=== PATIENT | male | born 1985 | race Two or more races ===

== ENCOUNTER 2023-07-03 10:07 | Emergency (ER) | payer OTHER ==
[2023-07-03] MEDS ORDERED: SODIUM CHLORIDE 0.9% 1,000 ML IV STA (10:34)
--- NOTE | 2023-07-03 10:36 | ED Physician Documentation ---
PD HPI HEADACHE - Stated complaint Stated Complaint: BP HIGH, GRAHAM - Chief complaint Chief Complaint: Neuro - History obtained from History obtained from: Patient - Additional information Additional information: Patient is a 38-year-old male with a history of hypertension presenting from the walk-in clinic for evaluation of elevated blood pressure and headache. Patient reports having a headache starting yesterday afternoon while at rest. He feels it in the back of his head and it radiates forward. Nothing makes it better or worse. No associated nausea or vomiting. Denies exertion at onset or t hunderclap in intensity. Has been using acetaminophen with some improvement. He went to the walk-in clinic today and they noted his blood pressure was elevated. He reports being compliant with his propanolol 60 mg daily. He states he has been on this medication for 6 months. He has not had any recent dose adjustments. He does report feeling very stressed and having poor sleep. Denies fever, chest pain, shortness of air, abdominal symptoms. Does not take a blood thinner. Review of Systems Constitutional: denies: Fever Cardiac: denies: Chest pain / pressure Respiratory: denies: Dyspnea GI: denies: Abdominal Pain Musculoskeletal: denies: Neck pain Neurologic: reports: Headache PD PAST MEDICAL HISTORY - Present Medications Home Medications: Ambulatory Orders Medication Instructions Recorded Confirmed amLODIPine [Norvasc] 5 mg PO DAILY #30 tablet 07/03/23 - Allergies Allergies/Adverse Reactions: Allergies Allergy/AdvReac Type Severity Reaction Status Date / Time No Known Drug Allergies Allergy Verified 07/03/23 10:25 PD ED PE NORMAL - General General: Alert and oriented X 3, No acute distress, Well developed/nourished - HEENT HEENT: Atraumatic, PERRL, EOMI, Moist mucous membranes, Pharynx benign - Neck Neck: Supple, no meningeal sign, No bony TTP - Cardiac Cardiac: RRR, No murmur - Respiratory Respiratory: No respiratory distress, Clear bilaterally - Abdomen Abdomen: Soft, Non tender - Derm Derm: Warm and dry - Extremities Extremities: No edema, No calf tenderness / cord - Neuro Neuro: Alert and oriented X 3, pharmacy cashier 2-12 intact, No motor deficit, No sensory deficit, Normal speech, Other (Normal unassisted gait) Results - Vitals Vitals: Vital Signs - 24 hr 08/29/23 08/29/23 08/29/23 10:19 10:32 11:58 Temperature 36.2 C L Heart Rate 74 73 75 Respiratory 18 15 15 Rate Blood Pressure 170/113 H 165/104 H 156/109 H O2 Saturation 98 100 100 07/03/23 07/03/23 07/03/23 13:12 13:45 14:01 Temperature Heart Rate 74 67 87 Respiratory 10 L 13 15 Rate Blood Pressure 163/104 H 159/105 H 164/97 H O2 Saturation 98 100 99 Oxygen O2 Source Room air - EKG (time done) 1018 EKG releavant findings:: EKG personally interpreted by author of this note. Relevant findings are: Rate 68, normal sinus rhythm, no STEMI, no prior for comparison Rate: Rate (enter#) (68) Rhythm: NSR Intervals: No: Prolonged QT Ischemia: No: ST elevation c/w ischemia Other comments: Other comments Compare to prior EKG: Old EKG unavailable (Motion artifact) - Labs Labs: Laboratory Tests 07/03/23 07/03/23 10:48 11:09 WBC 5.2 RBC 4.72 Hgb 14.1 Hct 43.2 MCV 91.5 MCH 29.9 MCHC 32.6 RDW 12.6 Plt Count 223 MPV 10.3 Neut # (Auto) 2.7 Lymph # (Auto) 1.9 Cedar # (Auto) 0.4 Eos # (Auto) 0.1 Baso # (Auto) 0.0 Absolute Nucleated RBC 0.00 Nucleated RBC % 0.0 Sodium 139 Potassium 4.1 Chloride 103 Carbon Dioxide 32 Anion Gap 4.0 L BUN 7 Creatinine 0.8 Estimated GFR (MDRD) 108 Glucose 97 Calcium 9.8 Total Bilirubin 1.3 H AST 21 ALT 17 Alkaline Phosphatase 61 Total Protein 7.5 Albumin 4.6 Globulin 2.9 Albumin/Globulin Ratio 1.6 PD Medical Decision Making - ED course Complexity details: reviewed results, re-evaluated patient, d/w patient ED course: Patient is a 38-year-old male with a history of hypertension presenting for eval uation of elevated blood pressure readings and headache since yesterday. Headache is not the worst headache of his life and does not have other features to suggest a subarachnoid hemorrhage. I did obtain a CT head to evaluate for intracranial hemorrhage given his hypertension and do not see evidence of this. CBC, chemistries were reviewed without significant findings. Patient reports improvement in his headache with migraine cocktail of IV Toradol, Reglan and Benadryl With IV fluids. Patient's blood pressure remained elevated including diastolic. Does not appear to have hypertensive emergency. We discussed options for treatment including close follow-up with the [facility] clinic versus adding an additional medication to his regiment. Patient states that he was last seen at their clinic in May and his blood pressure was also elevated there so I do feel that he has likely not been in his goal range recently on his propanolol. I am going to start him on a low-dose of amlodipine and have given him the first dose here today. I have instructed him to have close follow-up with the [facility]. 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 He is also advised on concerning symptoms to return for. No signs of meningitis. Normal neuro exam. Ambulatory without any difficulty. Departure - Departure Disposition: Home, Self Care Clinical Impression: Headache, Uncontrolled hypertension Condition: Stable Instructions: ED Cephalgia Unspecified, ED Hypertension Conf Out Of Control Follow-Up: ANDREY Hughes [Provider Group] Prescriptions: amLODIPine [Norvasc] 5 mg PO DAILY #30 tablet Comments: Your blood tests and work-up today do not show any damage from having too high of a blood pressure. You did receive medications to help with your headache. Because your blood pressure has remained elevated we have discussed options for treatment including adding another blood pressure medication to your regiment.I am sending a prescription for a new medication called amlodipine to the [facility] pharmacy in [place]. I would also recommend you call the [facility] clinic today to establish a follow-up visit for recheck of your blood pressure. Return to the emergency department if at anytime you feel dizzy, lightheaded, worsening headache or any new symptoms. Please also continue with your current blood pressure medication. Forms: PCP List, Activity restrictions Discharge Date/Time: 07/03/23 14:02
[2023-07-03 10:52] LABS: BASOPHILS % (AUTO) 0.8 %; EOSINOPHILS # (AUTO) 0.1 10^3/uL (0.0-0.7); EOSINOPHILS % (AUTO) 1.4 %; HCT - HEMATOCRIT 43.2 % (42.0-52.0); HGB - HEMOGLOBIN 14.1 g/dL (14.0-18.0); LYMPHOCYTES # (AUTO) 1.9 10^3/uL (1.5-3.5); LYMPHOCYTES % (AUTO) 37.5 %; MEAN CORPUSCULAR HEMOGLOBIN 29.9 pg (27.0-31.0); MEAN CORPUSCULAR HGB CONC 32.6 g/dL (32.0-36.0); MEAN CORPUSCULAR VOLUME 91.5 fL (80.0-94.0); MEAN PLATELET VOLUME 10.3 fL (7.4-11.4); MONOCYTES # (AUTO) 0.4 10^3/uL (0.0-1.0); MONOCYTES % (AUTO) 8.1 %; NEUTROPHILS # (AUTO) 2.7 10^3/uL (1.5-6.6); NEUTROPHILS % (AUTO) 51.8 %; PLT - PLATELET COUNT 223 10^3/uL (130-450); RED BLOOD COUNT 4.72 10^6/uL (4.70-6.10); RED CELL DISTRIBUTION WIDTH 12.6 % (12.0-15.0); WHITE BLOOD COUNT 5.2 x10^3/uL (4.8-10.8)
[2023-07-03 11:30] LABS: ALBUMIN 4.6 g/dL (3.2-5.5); ALBUMIN/GLOBULIN RATIO 1.6 (1.0-2.2); BILIRUBIN,TOTAL 1.3 mg/dL (0.2-1.0); CALCIUM 9.8 mg/dL (8.5-10.3); CREATININE 0.8 mg/dL (0.6-1.3); POTASSIUM 4.1 mmol/L (3.5-4.5); TOTAL PROTEIN 7.5 g/dL (6.4-8.9)
--- NOTE | 2023-07-03 11:36 | CT Report ---
PROCEDURE: HEAD WO INDICATIONS: headache/HTN TECHNIQUE: Noncontrast 4.5 mm thick angled axial sections acquired from the foramen magnum to the vertex. For r adiation dose reduction, the following was used: automated exposure control, adjustment of mA and/or kV according to patient size. COMPARISON: None. FINDINGS: Image quality: Excellent. CSF spaces: Basal cisterns are patent. No extra-axial fluid collections. Ventricles are normal in size and shape. Brain: No midline shift. No intracranial masses or hemorrhage. Dyer-white matter interface is norm al. Skull and face: Calvarium and visualized facial bones are intact, without suspicious lesions. Sinuses: Visualized sinuses and mastoids are clear. IMPRESSION: No acute intracranial pathology Reviewed by: Dudley Lemus MD on 07/03/2023 11:35 AM PDT Approved by: Dudley Lemus MD on 07/03/2023 11:35 AM PDT Station ID: [id number]
[2023-07-03] MEDS ORDERED: diphenhydrAMINE INJ 50 MG/ML VIAL IVP STA (11:47)
[2023-07-03] MEDS ORDERED: KETOROLAC 30 MG/ML VIAL IVP STA (11:47)
[2023-07-03] MEDS ORDERED: METOCLOPRAMIDE 10 MG/2 ML VIAL IVP STA (11:47)
[2023-07-03] MEDS ORDERED: amLODIPine 5 MG TABLET PO STA (13:18)
[2023-07-03 14:04] VITALS: BP 164/97; O2SAT 99
== END 2023-07-03 14:02 | disposition home or self-care (01) ==
LOC: ED 10:07
DX: R51.9 Headache, unspecified (principal); I10 Essential (primary) hypertension
CPT/HCPCS: 36415; 70450; 80053; 85025; 93005; 96374; 96375; 99284; A9270; J1200; J2765

== ENCOUNTER 2024-01-08 11:33 | Emergency (ER) | payer OTHER ==
--- NOTE | 2024-01-08 12:05 | ED Physician Documentation ---
PD HPI BACK PAIN - Stated complaint Stated Complaint: LOWER BACK PX,BILAT LEG NUMBNESS - History obtained from History obtained from: Patient - History of Present Illness Timing - onset: How many months ago (had a fall onto back a month ago with some pain to low back intermittently. Fell again yesteday backward, just tripped, and landed buttock/low back with worse pain, radiating down left leg, with some numbness to leg. No weakness.) Timing - details: Abrupt onset, Still present Location: Lower, Left Quality: Pain, Spasm. No: Aching Associated symptoms: Numbness. No: Fever, Weakness Contributing factors: Trauma (fall to buttock/low back) Review of Systems : denies: Incontinent Musculoskeletal: reports: Back pain. denies: Neck pain Neurologic: reports: Numbness (left leg). denies: Focal weakness PD PAST MEDICAL HISTORY - Past Medical History Past Medical History: Yes Cardiovascular: Hypertension - Present Medications Home Medications: Ambulatory Orders Medication Instructions Recorded Confirmed amLODIPine [Norvasc] 5 mg PO DAILY #30 tablet 07/03/23 01/08/24 HYDROcod/ACETAM 5/325 [Omega 5/325] 1 ea PO Q6H PRN #15 tablet 01/08/24 Meloxicam [Mobic] 7.5 mg PO BID 10 Days #20 tablet 01/08/24 methocarbamoL [Robaxin] 500 mg PO TID PRN #20 tablet 01/08/24 - Allergies Allergies/Adverse Reactions: Allergies Allergy/AdvReac Type Severity Reaction Status Date / Time No Known Drug Allergies Allergy Verified 01/08/24 12:00 - Social History Does the pt smoke?: No Smoking Status: Never smoker Does the pt drink ETOH?: No Does the pt have substance abuse?: No PD ED PE NORMAL - Vitals Vital signs reviewed: Yes - General General: Alert and oriented X 3, Well developed/nourished, Other - Back Back: Other (left lateral lumbar area with some soft tissue/muscle tenderness. Not tender in midline. ) - Derm Derm: Normal color, Warm and dry - Neuro Neuro: Alert and oriented X 3, No motor deficit, Normal speech, Other (decreased sensation left leg in general, nondermatomal. No weakness. ) Results - Vitals Vitals: Oxygen O2 Source Room air - Rads (name of study) lumbar CT Relevant Findings:: Prelim report reviewed (no fractures nor disc problems of note. Central canal without impingement. ), EMP independent interpretation of test PD Medical Decision Making - ED course Complexity details: reviewed results (CT lumbar without acute process. ), considered differential, d/w patient Reviewed Lab Results: CT done due to injury and then back pain with numbness to left leg. CT did not show structural injury. Presume muscular strain. Given dilaudid, toradol IM for pain. Departure - Departure Disposition: 01 Home, Self Care Clinical Impression: Fall, accidental, Low back pain, Acute myofascial strain of lumbar region Condition: Stable Record reviewed to determine appropriate education?: Yes Instructions: ED Low Back Pain Injury Follow-Up: WU BORJAS MD [Primary Care Provider] - Prescriptions: Meloxicam [Mobic] 7.5 mg PO BID 10 Days #20 tablet HYDROcod/ACETAM 5/325 [Omega 5/325] 1 ea PO Q6H PRN #15 tablet PRN Reason: Pain methocarbamoL [Robaxin] 500 mg PO TID PRN #20 tablet PRN Reason: Spasms Comments: Your CT scan appears normal without any signs of disc abnormalities, nerve impingement, fractures or misalignment. Incidentally noted was a small blood vessel clustering called a hemangioma which is a normal incidental finding. No follow-up is needed for that part. Follow-up with your primary care however for the back pain. Presume strain of the muscles and spasming within pressure on the nerves causing the numbness down the leg. We could go with a combination of anti-inflammatories and muscle relaxants, heat stretching and light activity. Add Tylenol every 4-6 hours if needed for pain or hydrocodone/acetaminophen if needed for worse pain. Off duty today in a couple more days. I sent your prescriptions to [facility] pharmacy. I am prescribing a short course of narcotic pain medication for you. These are potentially dangerous and addictive medications that should be used carefully. These medications may constipate you. Take an [id number] stool softener such as docusate twice daily with plenty of water while taking these medications. If you go 24 hours without a bowel movement, take [id number] MiraLAX, per package instructions. Do not drink or drive while taking these medications. If you received narcotic or sedating medications while in the emergency department do not drive for 24 hours. Store this medication in a safe, secure place and out of reach of children. It is a violation of federal law to give or sell this medication to another person or to use in a manner other than prescribed. The ED will not refill narcotic prescriptions, including prescriptions lost or stolen. You can dispose of unwanted medications at the [facility]'s office or at several pharmacies such as [facility]. Forms: Activity restrictions Discharge Date/Time: 01/08/24 14:44
[2024-01-08 12:06] VITALS: BP 149/100; O2SAT 100
[2024-01-08] MEDS: KETOROLAC 30 MG/ML VIAL IM STA (13:29)
[2024-01-08] MEDS: HYDROmorphone 1 MG/ML CARPUJECT IM STA (13:30)
[2024-01-08] MEDS: methocarbamoL 500 MG TABLET PO STA (13:31)
--- NOTE | 2024-01-08 13:37 | CT Report ---
PROCEDURE: Lumbar Spine WO INDICATIONS: fall, pain left lumbar, numbness left leg TECHNIQUE: Noncontrast 3 mm thick sections acquired from the T12 level to the sacrum. Sagittal and coronal refo rmats were constructed. For radiation dose reduction, the following was used: automated exposure co ntrol, adjustment of mA and/or kV according to patient size. COMPARISON: None. FINDINGS: Image quality: Excellent. Bones: There is normal bony alignment. L1 benign intraosseous hemangioma. No acute vertebral body c ompression fractures. No suspicious lytic or blastic bony lesions. No central canal stenosis or neur al foraminal narrowing. No No pars defects. Soft tissues: No retroperitoneal masses or hematomas. Visualized aorta is normal in caliber. IMPRESSION: No fracture. No acute osseous lesion. If there is continued clinical concern for pathology, then MRI should be considered for further evaluation. Reviewed by: Danielle Jose MD, PhD on 01/08/2024 1:35 PM PST Approved by: Danielle Jose MD, PhD on 01/08/2024 1:35 PM PST Station ID: [id number]
== END 2024-01-08 14:44 | disposition home or self-care (01) ==
LOC: ED 11:33
DX: S39.012A Strain of muscle, fascia and tendon of lower back, initial encounter (principal); W01.0XXA Fall on same level from slipping, tripping and stumbling without subsequent striking against object, initial encounter
CPT/HCPCS: 72131; 96372; 99284; A9270; J1170

== ENCOUNTER 2024-04-17 15:20 | Emergency (ER) | payer OTHER ==
[2024-04-17 15:33] VITALS: BP 137/79; O2SAT 100
--- NOTE | 2024-04-17 17:08 | XRAY Report ---
PROCEDURE: Hand 3+V LT INDICATIONS: crushed injury/laceration L 4-5TH DIGIT TECHNIQUE: 3 views of the hand(s) acquired. COMPARISON: None. FINDINGS: Bones: Comminuted distal tuft fracture, distal phalanx of fifth finger. No suspicious bony lesions. Soft tissues: No suspicious soft tissue calcifications or masses. Associated soft tissue laceration, distal aspect, fifth finger IMPRESSION: Comminuted distal tuft fracture of distal phalanx of fifth finger with associated soft tissue lacerat ion. Reviewed by: Dudley Lemus MD on 04/17/2024 5:07 PM PDT Approved by: Dudley Lemus MD on 04/17/2024 5:07 PM PDT Station ID: [id number]
[2024-04-17] MEDS: BUPIVACAINE 0.5% PF 10 ML VIAL IM ONE (18:21)
--- NOTE | 2024-04-17 18:27 | ED Physician Documentation ---
PD HPI SKIN - Stated complaint Stated Complaint: LT HAND LAC - Chief complaint Chief Complaint: Laceration - Additional information Additional information: Patient said that he had his arms outstretched over doorway and wind slammed the door shut onto his left hand crushing his fourth and fifth finger. Bleeding is well-controlled but there is an open laceration patient endorses and severe pain up-to-date with tetanus shot. Most the bleeding laceration is to the left fifth finger patient reports he is experiencing severe pain able to flex and extend without difficulty. PD PAST MEDICAL HISTORY - Past Medical History Past Medical History: No Cardiovascular: Hypertension Respiratory: None Neuro: None Endocrine/Autoimmune: None GI: None : None HEENT: None Psych: Depression Musculoskeletal: None Derm: None - Past Surgical History Past Surgical History: No - Present Medications Home Medications: Ambulatory Orders Medication Instructions Recorded Confirmed Citalopram [CeleXA] 10 mg PO DAILY 04/17/24 HYDROcod/ACETAM 5/325 [Samson 5/325] 1 tab PO Q6H PRN #5 tab 04/17/24 Lisinopril [Zestril] 10 mg PO DAILY 04/17/24 cephALEXin [Keflex] 500 mg PO Q6H 5 Days #20 cap 04/17/24 hydroCHLOROthiazide [Hydrodiuril] 12.5 mg PO DAILY 04/17/24 - Allergies Allergies/Adverse Reactions: Allergies Allergy/AdvReac Type Severity Reaction Status Date / Time No Known Drug Allergies Allergy Verified 04/17/24 15:31 - Social History Does the pt smoke?: No Smoking Status: Never smoker Does the pt drink ETOH?: No Does the pt have substance abuse?: No - Immunizations Immunizations are current?: Yes - POLST Patient has POLST: No PD ED PE NORMAL - Vitals Vital signs reviewed: Yes - General General: Alert and oriented X 3, No acute distress, Well developed/nourished - Free text exam Free text exam: Left hand: Laceration to left fifth finger at the DIP not involving the nail. Able to flex and extend against resistance. Superficial laceration to the volar aspect of the left fourth finger in between MIP and DIP bleeding controlled able to flex and extend without difficulty. Results - Vitals Vitals: Vital Signs - 24 hr 04/17/24 15:22 Temperature 36.4 C L Heart Rate 74 Respiratory 16 Rate Blood Pressure 137/79 H O2 Saturation 100 Oxygen O2 Source Room air Procedures - Laceration (location) fifth finger laceration Length in cm: 1.5 Wound type: Curved, Into subcut fat, Clean Neurovascular status: Sensory intact, Motor intact, Vascular intact Tendon involvement: Tendon intact Anesthesia: Marcaine 0.25% Wound preparation: Irrigated copiously NS, debridement of wound edges (traumatic laceration/avulsion) Skin layer closure: Nylon, Interrupted, Size #-0 - enter number (4-0), Sutures - enter # (4) Other: Patient tolerated well, No complications, Neurovascular intact, Dressing applied, Tetanus UTD PD Medical Decision Making - ED course ED course: Wound inspected under direct bright light with good visualization. X-rays complete of the left hand it does reveal that patient has a comminuted distal tuft fracture of distal phalanx of the left fifth finger. Area with linear laceration across soft tissue through adipose without exposure of muscle belly or tendon. No overt foreign body. Area hemostatic. Neurovascular exam congruent with above. Area extensively irrigated with sterile normal saline under pressure. Laceration repaired in simple fashion (please see procedure note for further details). He is also given intramuscular one-time dose of Rocephin Because there is bony involvement and prescription of Keflex sent to his preferred pharmacy.Patient tolerated procedure well and neurovascular exam intact and unchanged post repair with intact distal pulses and cap refill. Cautious return precautions discussed w/ full understanding. Wound care discussed. Prompt follow up with primary care physician discussed and return for suture removal in 8-10 days. Departure - Departure Disposition: 01 Home, Self Care Clinical Impression: Open fracture of tuft of distal phalanx of finger Instructions: ED Fx Finger Open Prescriptions: cephALEXin [Keflex] 500 mg PO Q6H 5 Days #20 cap HYDROcod/ACETAM 5/325 [Samson 5/325] 1 tab PO Q6H PRN #5 tab PRN Reason: Pain >8 Forms: PCP List Discharge Date/Time: 04/17/24 19:04
[2024-04-17] MEDS: LIDOCAINE 1% 2 ML VIAL MC ONE (18:36)
[2024-04-17] MEDS: cefTRIAXone 1 GM VIAL IM STA (18:37)
[2024-04-17] MEDS: BACITRACIN ZINC OINT 1 PACKET TOP STA (18:37)
== END 2024-04-17 19:04 | disposition home or self-care (01) ==
LOC: ED 15:20
DX: S62.637B Displaced fracture of distal phalanx of left little finger, initial encounter for open fracture (principal); W23.1XXA Caught, crushed, jammed, or pinched between stationary objects, initial encounter; Y93.89 Activity, other specified
CPT/HCPCS: 12001; 73130; 96374; 99283; 99284; A9270

== ENCOUNTER 2024-05-06 15:48 | Outpatient (CLI) | payer OTHER ==
--- NOTE | 2024-05-06 16:53 | Sleep Patient Instructions ---
Sleep Center Visit Summary - Patient Visit Information Reason for Visit: Initial consult for evaluation of sleep disordered breathing and other sleep issues. - Patient Instructions Instructions Attached: Sleep Study Additional Instructions: You will be completing a sleep study, either an in-lab polysomnography (PSG) or home sleep study (HST). You will follow-up in the sleep care office after the sleep study is completed to hear the results and talk about therapy, if needed. You will be called by our office staff to schedule this appointment, but you may contact us with any questions. - Clinic Information Contact: [facility] [address] [place] [address] [email or web address] T: [phone]
--- NOTE | 2024-05-06 16:56 | SLEEP CARE CONSULTATION ---
Information from patient questionnaire entered by Yelitza Arredondo. I have reviewed and concur with the information entered by Yelitza Arredondo. This document represents the service I personally performed and the decisions made by me, Elena Lechuga ARNP. History of Present Illness Service Date and Time: 05/06/2024 1548 Reason for Visit: New patient Chief Complaint: reports: Insomnia, Snoring, Fatigue, Frequent awakenings at night Date of Onset: Approximately 1 year 1/2 Usual bedtime: 9 PM - 10 PM Time it takes to fall asleep: 30 min approximately Snores at night: Yes Observed to quit breathing while asleep: Yes Sleeps alone due to snoring: No Number of times waking at night: 2 - 3 Reasons for waking at night: reports: Choking, Snoring, Gasping for air, Other (Cough a lot) Toss, Turn, or Twitch while sleeping: Yes Recalls having dreams: Yes Usually gets out of bed at: 6:30 - 7:00 AM Feels refreshed in the morning: No Morning headache: Yes (just about every day; last all day until - With Tylenol or Excedrin) Sleepy or fatigued during the day: Yes Ever fallen asleep while driving: No Takes day naps: Yes (on Sunday, 10 minute nap) Dreams during day naps: No Prior sleep studies: No Additional HPI information: I had the pleasure of seeing EARL ALBERTO today regarding the possibility of him having a sleep disorder. His current complaints are insomnia, snoring, fatigue and frequent night awakenings. He thinks his doctor sent him here because he is a little overweight, has high blood pressure and is not sleeping well. He lays down between 9-10 pm and it takes about a half hour to go to sleep. He will wake up 3-4 hours later and not be able to fall back to sleep. He is not sure what is waking him up, but sometimes he has nightmares that will cause him to wake up. He will lay in bed and get up about [id number] AM. He does not feel rested in the morning, "feels tired". - Parasomnia Symptoms Ever been unable to move upon waking from sleep: No Walks in sleep: No Talks in sleep: Yes Ever acted out dreams in sleep: Yes (once he woke up punching wall) Ever felt weak in the knees when startled or emotional: No Bothered by creepy, crawly, restless sensations in legs: Yes (sometimes, randomly ) Problems with memory or concentration: Yes (concentration all the time) Subjective Initial [place] Sleepiness Scale score: 12 (in 2023) Past Medical History Past Medical History: reports: Hypertension, Anxiety, Depression, Attention deficit, Other (Panic Attack) Social History 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 Patient is and lives in [place]. Have you smoked in the past 12 months: No Alcohol use: Yes Alcohol amount and frequency: 6 pack or cup, 1 monthly Caffeine use: Yes Caffeine amount and frequency: 1 cup coffee in morning Family History Family history of sleep disordered breathing: No Allergies and Home Medications Known drug allergies: No Drug allergies reviewed: Yes Home medication list reviewed: Yes (as listed) Allergy and home medication list: Allergies No Known Drug Allergies Allergy (Verified 05/05/24 10:33) Medications: Lisinopril 20 HCTZ 25 mg Escitalopram Hydroxizine Review of Systems Weight gain over past 5 years: 35 Cardiovascular: reports: high blood pressure, palpitations Gastrointestinal: denies: heartburn Urinary: reports: impotence Neurological: reports: headaches Psychiatric: reports: Attention Deficit Hyperactivity, anxiety, other (Panic attacks) Ear/Nose/Throat: denies: tonsillectomy Endocrine: reports: increased appetite Musculoskeletal: reports: back pain Physical Exam Vital signs obtained and entered by: Elena Vegas NP Blood Pressure: 131/85 Cuff size: long (right arm) Heart Rate: 72 O2 Saturation: 99 Height: 6 ft Weight: 243 lb 12.8 oz Body Mass Index: 33.0 BMI Classification: Obese Neck circumference: 16 (inches) Mouth and throat: narrow oropharynx Soft palate: long Hard palate: normal Uvula: normal Uvula visualization: 25% Mallampati Class III Tongue: enlarged in size with teeth ernst on lateral edges Tonsils: small Neck: normal w/o lymphadenopathy or thyromegaly Heart: regular rate and rhythm Lungs: clear bilaterally Impression and Plan 1. Suspected Obstructive Sleep Apnea-Hypopnea Syndrome, as suggested by a history of loud and irregular snoring, observed cessation of breath while asleep, gasping or choking in sleep, morning headache, frequent awakening during the night, unrefreshed sleep, cognitive impairment, and excessive daytime sleepiness. Narrow oropharynx and obesity are common predisposing factors for obstructive sleep apnea-hypopnea syndrome. I recommend proceeding to polysomnography to confirm the diagnosis and to assess severity. If the patient has significant sleep disordered breathing, a manual CPAP titration study will also be performed to find the optimal treatment pressure. I informed the patient of what the sleep studies involve and after some discussion, obtained agreement to proceed. The pathophysiology of obstructive sleep apnea-hypopnea syndrome was discussed with the patient and health risks of cardiovascular and cerebrovascular disease if not treated. Risks of drowsy driving discussed in detail and patient advised to avoid long distance driving and to pan puller at the first sign of drowsiness. Patient agreed to plan. * Schedule polysomnography * Avoid long distance driving or driving when feeling sleepy. * Avoid alcohol, sedative and muscle relaxant around bedtime. * Attempt to lose weight. * Review instructions provided by trained office staff on how to prepare for the sleep study. * Return for follow-up after sleep study completed. Counseling Topics: Weight loss health impact Plan: PSG/HST and follow up Visit Type: In Office Time Spent with Patient (minutes): 32 Provider Statement: I spent 100% of the Face to Face Visit with the patient with greater than 50% spent counseling the patient and coordination of care.
[2024-05-06 17:09] VITALS: BP 131/85; O2SAT 99
== END 2024-05-06 15:49 | disposition home or self-care (01) ==
LOC: SC 15:48
PROVIDERS: ATTEND Nurse Practitioner Family
DX: R06.83 Snoring (principal); G47.00 Insomnia, unspecified; R53.83 Other fatigue; G47.8 Other sleep disorders; R06.81 Apnea, not elsewhere classified; R51.9 Headache, unspecified; R41.89 Other symptoms and signs involving cognitive functions and awareness; G47.10 Hypersomnia, unspecified; E66.9 Obesity, unspecified; Z68.33 Body mass index [BMI] 33.0-33.9, adult
CPT/HCPCS: 99203; 99212

== ENCOUNTER 2024-07-04 20:30 | Outpatient (CLI) | payer OTHER | END 2024-07-04 20:31 | disposition home or self-care (01) | LOC: SC 20:30 | PROVIDERS: ATTEND Nurse Practitioner Family | DX: G47.33 Obstructive sleep apnea (adult) (pediatric) (principal); E66.9 Obesity, unspecified; Z68.33 Body mass index [BMI] 33.0-33.9, adult; F32.A Depression, unspecified; I10 Essential (primary) hypertension | CPT/HCPCS: 95810 ==

== ENCOUNTER 2024-07-16 10:39 | Outpatient (CLI) | payer OTHER ==
--- NOTE | 2024-07-16 11:22 | Sleep Patient Instructions ---
Sleep Center Visit Summary - Patient Visit Information Reason for Visit: Sleep study follow-up - Patient Instructions Instructions Attached: CPAP Additional Instructions: You are being started on CPAP therapy with pressure setting at 4-15 cmH2O. You w ill need to call the sleep care office to set up your follow up once you have your CPAP machine to check compliance and response to therapy at that time. You may call the office with any concerns about pressure feeling too low or too much for adjustment, if needed. You should contact DME supplier for any questions or concerns about mask or equipment. Please call office to schedule a follow up appointment in the sleep care office one month after obtaining new device. - Clinic Information Contact: [facility] [address] [place] [address] [email or web address] T: [phone]
--- NOTE | 2024-07-16 11:24 | SLEEP CARE CONSULTATION ---
Information from patient questionnaire entered by Abimbola Grant. I have reviewed and concur with the information entered by Abimbola Grant. This document represents the service I personally performed and the decisions made by , Elena Lechuga ARNP. History of Present Illness Service Date and Time: 07/16/2024 1039 Initial [place] Sleepiness Scale score: 12 (in 2023) Current [place] Sleepiness Scale score: 13 (07/16/24) Additional HPI information: EARL OWENS ALBERTO returns for follow up and results of the recently performed polysomnography. The sleep study done on 07/04/24 showed mild obstructive sleep apnea with an average AHI of 7.4 and alfreda oxygen saturation of 83%. I explained the pathophysiology behind obstructive sleep apnea. We then spent quite a bit of time discussing different treatment options. For mild obstructive sleep apnea, surgery and oral appliance are alternatives to nasal CPAP therapy but in moderate or severe cases, nasal CPAP is the most effective and reliable treatment. Because apnea is primarily in supine position, then positional management therapy could be effective. Methods discussed such as positioning with pillows, using a T-shirt with tennis balls in the back or commercial products that have a pillow format on back to prevent supine sleep. I reviewed the impact of weight changes on sleep apnea and strongly recommended losing weight. After some discussion, the patient opted to go with the nasal CPAP therapy. Nasal autoCPAP set at 4-15 cmH20 will be ordered with rationale explained. A manual titration study will be ordered if unable to find optimal pressure with office adjustments. I explained how CPAP machine works and what to expect when using the machine. Using CPAP every night in order to get used to it was emphasized. Patient advised to put CPAP mask on before getting into bed so as not to fall asleep without CPAP. To assist acclimation to CPAP use, it could also be used for a short time during day while reading or watching TV. The patient was instructed to call the CPAP supplier to discuss any mechanical problem that may occur. If the mask given is uncomfortable or is difficult to keep on through the night even with adjustment, contact the CPAP supplier as many will replace with another mask style if notified before 30 days. If snoring or perceives is not getting enough air or too much air from the machine, notify this office. Patient counseled not drink alcohol less than 4 hours before bedtime as it can increase snoring and apnea. Patient was cautioned about risks of drowsy driving until sleepiness symptoms resolve. Patient denies drowsy driving. Sleep Study - Results Type of Sleep Study: Polysomnography ([id number]) Prior sleep studies: No Polysomnography/Home Sleep Study results: IMPRESSION: The quality of the study is good. The patient had normal sleep efficiency. The sleep architecture was also normal. Respiratory monitoring showed mild obstructive sleep apnea- hypopnea (AHI = 7.4) associated with oxyhemoglobin desaturation and mild hypoxia (alfreda oxygen saturation of 83%). The respiratory events occurred almost exclusively during supine sleep (supine AHI = 9.7; non-supine = 0.77). Snore was light to loud in intensity. There was no significant periodic leg movement of sleep. Cardiac rhythm was normal sinus rhythm without significant arrhythmia. No abnormal behavior (parasomnia) observed during the night. Allergies and Home Medications Known drug allergies: No Drug allergies reviewed: Yes Home medication list reviewed: Yes (no changes) Allergy and home medication list: Allergies No Known Drug Allergies Allergy (Verified 07/16/24 10:47) Review of Systems Review of systems same as previous: Yes (NO CHANGE) Physical Exam Vital signs obtained and entered by: ABIMBOLA Simmons MA Blood Pressure: 160/105 (RIGHT ARM--pt under stress) Cuff size: regular Heart Rate: 85 O2 Saturation: 98 Height: 6 ft Weight: 240 lb (PER PT) Body Mass Index: 32.5 BMI Classification: Obese Impression and Plan 1. Obstructive Sleep Apnea-Hypopnea Syndrome, mild, with lowest oxygen saturation of 83%. Obviously this is the cause of the patients symptoms of unrefreshed sleep, and excessive daytime sleepiness. Positive pressure therapy could benefit hypertension, anxiety, depression and attention deficit. As mentioned above, the patient will be started on nasal autoCPAP therapy with pressure set at 4-15 cmH2O. A manual titration study will be completed if unable to find optimal treatment pressure with office adjustments. Compliance guidelines also reviewed. A copy of compliance guidelines will be given for reference at check out. Because the apnea is more severe supine, I instructed to avoid sleeping supine using pillow positioning until able to start CPAP use. 2. Hypoxemia, mild, with a alfreda oxygen saturation of 83% and 2.2 minutes spent under 90%. The baseline oxygen saturation was normal with an average oxygen saturation of 94%. 3. Obesity, unspecified. Currently patients BMI is 32.5. Obesity increases the risk of apnea, CPAP pressure requirements and overall health risks especially cardiovascular and diabetes. Thus patient is advised to lose weight. * Nasal auto CPAP therapy, pressure at 4-15 cmH2O, urgent setup due to deployment later this month. * Attempt to lose weight. * Avoid alcohol consumption near bedtime. * Avoid supine sleep until using CPAP. * The patient is again cautioned about driving until sleepiness completely resolves. * Return one month after CPAP obtained. I will assess response to therapy and compliance at that time. Counseling Topics: Sleeping position, Weight loss health impact Prescriptions: Auto CPAP Plan: start CPAP and compliance followup Visit Type: In Office Time Spent with Patient (minutes): 23 Provider Statement: I spent 100% of the Face to Face Visit with the patient with greater than 50% spent counseling the patient and coordination of care.
[2024-07-16 11:35] VITALS: BP 160/105; O2SAT 98
== END 2024-07-16 10:40 | disposition home or self-care (01) ==
LOC: SC 10:39
PROVIDERS: ATTEND Nurse Practitioner Family
DX: G47.33 Obstructive sleep apnea (adult) (pediatric) (principal); R09.02 Hypoxemia; E66.9 Obesity, unspecified; Z68.32 Body mass index [BMI] 32.0-32.9, adult
CPT/HCPCS: 99212; 99213